=== PATIENT | male | born 1990 | race Caucasian/White ===

== ENCOUNTER 2017-09-01 22:47 | Emergency (ER) | payer OTHER ==
[2017-09-01 22:56] VITALS: BP 133/72; PULSE 84; RESP 18; TEMP 98.2; O2SAT 95
[2017-09-01] MEDS ORDERED: TDAP ADULT 0.5 ML INJ (BOOSTRIX) IM ONE (23:30)
--- NOTE | 2017-09-01 23:43 | EDPHY ---
H & P Time Seen by Provider: 09/01/17 23:07 HPI/ROS: CHIEF COMPLAINT: Forehead laceration HISTORY OF PRESENT ILLNESS: 27-year-old male presents to the emergency department by private vehicle with a large forehead laceration. The patient was playing softball and tripped over home plate and hit his head on a fence. He sustained forehead laceration as well as laceration to the bridge of his nose. The incident happened just prior to arrival. He did not lose consciousness. He denies a headache. Denies neck or back pain. Denies chest pain or difficulty breathing. No nausea or vomiting. No abdominal pain. No injury to his upper or lower extremities. He is unsure of his last tetanus shot. REVIEW OF SYSTEMS: Constitutional: No fever, no chills. Eyes: No double or blurry vision. ENT: No sore throat. Respiratory: No cough, no shortness of breath. Cardiac: No chest pain. Gastrointestinal: No abdominal pain, vomiting or diarrhea. Genitourinary: No dysuria. Musculoskeletal: No neck or back pain. Skin: No rashes. Neurological: No headache. Past Medical/Surgical History: Negative Social History: Single Smoking Status: Current every day smoker Physical Exam: General Appearance: Alert, no distress. Mentating normally and answering questions appropriately. Girlfriend at bedside. Eyes: Pupils equal and round. Extraocular motions are all intact. ENT: Mouth: Mucous membranes moist. No palpable bony tenderness to his facial bones. No dental injury or malocclusion. Respiratory: No wheezing, rhonchi, or rales, lungs are clear to auscultation. Cardiovascular: Regular rate and rhythm. Gastrointestinal: Abdomen is soft and nontender, no masses, no rebound or guarding, bowel sounds normal. Neurological: Alert and oriented x 3, cranial nerves II through XII grossly intact Skin: 5 cm central forehead laceration. Active bleeding noted. There is also a 1.5 cm flap laceration to the anterior aspect over the bridge of the nose. Warm and dry, no rashes. Musculoskeletal: Nontender to palpate along the cervical, thoracic or lumbar spine. Neck is supple. Extremities: Full range of motion and no peripheral edema. Psychiatric: Patient is oriented X 3, there is no agitation. Constitutional: Initial Vital Signs Temperature (C) 36.8 C 09/01/17 22:53 Heart Rate 84 09/01/17 22:53 Respiratory Rate 18 09/01/17 22:53 Blood Pressure 133/72 H 09/01/17 22:53 O2 Sat (%) 95 09/01/17 22:53 O2 Delivery Mode Room Air Allergies/Adverse Reactions: guaifenesin Allergy (Verified 09/01/17 22:52) Home Medications: Medication Instructions Recorded NK [No Known Home Meds] 09/01/17 Medical Decision Making Procedures: Laceration repair #1. Verbal consent was obtained from the patient. The 5 cm laceration on the forehead was anesthetized using 1% lidocaine without epinephrine. The wound was irrigated with saline, draped and explored to its base with a gloved finger. There were no deep structures involved. The wound was repaired with 6 0 Prolene, 12 sutures. The wound repair was complex. The procedure was performed by myself. Laceration repair. Verbal consent was obtained from the patient. The 1.5 cm flap laceration on the bridge of nose was anesthetized using 1% lidocaine without epinephrine. The wound was irrigated with saline, draped and explored to its base with a gloved finger. There were no deep structures involved. The wound was repaired with 6 0 Prolene, 3 sutures. The wound repair was simple. The procedure was performed by myself. ED Course/Re-evaluation: 27-year-old male presents to the emergency department with forehead laceration. The wound was repaired, see procedure note. Patient did not consciousness. He denies a headache. I discussed the pros and cons of CT imaging of his brain including radiation exposure the patient agrees with not obtaining CT scan of his brain. I think the patient has a capacity to make this decision. His girlfriend will watch him closely and bring him back if he develops worsening headache, vomiting or altered mental status. Differential Diagnosis: Head injury including but not limited to concussion, skull fracture, intraparenchymal contusion, subarachnoid, subdural and epidural hematoma. - Data Points Medications Given: Discontinued Medications Diphtheria/Tetanus/Acell Pertussis (Boostrix) 0.5 ml IM .ONCE ONE Stop: 09/01/17 23:31 Last Admin: 09/01/17 23:32 Dose: 0.5 ml Departure - Departure Disposition: Home, Routine, Self-Care Clinical Impression: Forehead laceration Qualifiers: Encounter type: initial encounter Qualified Code(s): S01.81XA - Laceration without foreign body of other part of head, initial encounter Condition: Good Instructions: Care For Your Stitches (ED), Laceration (ED), Acute Wounds (ED) Additional Instructions: Wound Care Follow-Up: Removal of sutures in 7 days. Suture removal is complimentary in uncomplicated cases. Infection or abnormal findings would require reevaluation by the MD. In that case, you may be billed. Return to the emergency department if you develop headache, vomiting, altered mental status, or if you feel worse in any way. Your given a tetanus shot today in the emergency department. Please document this at home for your records. Referrals: NONE *PRIMARY CARE P,. [Primary Care Provider] - As per Instructions
== END 2017-09-02 00:49 | disposition home or self-care (01) ==
DX: S01.81XA Laceration without foreign body of other part of head, initial encounter (principal); F17.200 Nicotine dependence, unspecified, uncomplicated; Z23 Encounter for immunization; W01.198A Fall on same level from slipping, tripping and stumbling with subsequent striking against other object, initial encounter; Y92.009 Unspecified place in unspecified non-institutional (private) residence as the place of occurrence of the external cause; Y99.8 Other external cause status; Y93.64 Activity, baseball

== ENCOUNTER → 2018-03-31 | Outpatient (CLI) | payer OTHER | LOC: BMCIMAGING 13:48 | PROVIDERS: ATTEND Family Medicine | DX: S99.921A Unspecified injury of right foot, initial encounter (principal); S99.911A Unspecified injury of right ankle, initial encounter; Y93.64 Activity, baseball ==